=== PATIENT | female | born 1985 ===

== ENCOUNTER → 2022-03-05 | Day surgery (SDC) | payer OTHER ==
[~2022-03-05] VITALS: Ht 175.3 cm; Wt 77.1 kg
[~2022-03-05] MED LIST: ACETAZOLAMIDE500 MG PO; BUSPIRONE HCL10 MG PO; CYANOCOBAL1000 MCG/1 SC; ESCITALOPRAM OX10 MG PO; IBUPROFEN800 M1 PO; QUETIAPINE FUM200 MG PO; TOPIRAMATE100 MG PO
[2022-03-05 07:02] LABS: HCG (URINE) SCREEN NEGATIVE (NEGATIVE)
[2022-03-05 07:18] LABS: BASOPHIL 0.6 % (0-2); EOSINOPHIL 1.9 % (0-5); HCT 37.5 % (37.0-47.0); HGB 12.2 g/dl (12.5-16.0); LYMPHOCYTE 32.4 % (15-48); MCH 30.9 pg (25.0-31.0); MCHC 32.5 g/dL (32.0-36.0); MCV 94.9 fL (78.0-100.0); MONOCYTE 7.6 % (0-12); MPV 10.1 fL (6.0-9.5); NEUTROPHIL 57.3 % (41-80); NRBC 0; PLT 173 K/uL (150-400); RBC 3.95 M/uL (4.20-5.40); RDW 13.2 % (11.5-14.0); WBC 6.3 K/uL (4.0-10.5)
[2022-03-05 08:05] LABS: ALBUMIN 3.7 g/dL (3.4-5.0); BILIRUBIN - TOTAL 0.2 mg/dL (0.2-1.0); BUN/CREAT RATIO (CALC) 21.2 RATIO; CREATININE 0.85 mg/dL (0.51-0.95); POTASSIUM 3.9 mmol/L (3.5-5.1); TOTAL PROTEIN 6.7 g/dL (6.4-8.2)
== END | disposition home or self-care (01) ==
LOC: FAS 06:42
PROVIDERS: Oral & Maxillofacial Surgery
DX: K02.9 Dental caries, unspecified (principal); K04.7 Periapical abscess without sinus; G93.2 Benign intracranial hypertension; F41.9 Anxiety disorder, unspecified; F32.A Depression, unspecified; F17.210 Nicotine dependence, cigarettes, uncomplicated
CPT/HCPCS: 36415; 80053; 84703; 85025; J1100; J1170; J2250; J2405; J2704; J2710; J3010; J7120